=== PATIENT | female | born 1995 | race Two or more races ===

== ENCOUNTER 2016-02-21 11:30 | Emergency (ER) | payer MEDICAID ==
[~2016-02-21] VITALS: Ht 154.9 cm; Wt 115.7 kg
[2016-02-21 12:08] LABS: Basophils # (auto) 0 uL; Basophils % (auto) 0.4 % (0.0-2.0); Eosinophils # (auto) 0.1 uL; Eosinophils % (auto) 1.1 % (0.0-7.0); Hemoglobin 14.3 g/dL (12.2-16.2); Lymphocytes # (auto) 2.6 uL; Lymphocytes % (auto) 23.4 % (10.0-50.0); Mean Corpuscular Hemoglobin 27.7 pg (28.0-32.0); Mean Corpuscular Hgb Conc. 32.5 g/dL (32.0-36.0); Mean Corpuscular Volume 85.1 fL (80.0-100.0); Mean Platelet Volume 7.8 fL (7.4-10.4); Monocytes # (auto) 0.8 uL; Monocytes % (auto) 7.3 % (0.0-12.0); Neutrophils # (auto) 7.6 uL; Neutrophils % (auto) 67.8 % (37.0-80.0); Platelet Count (auto) 425 10^3/uL (140-450); Red Cell Distribution Width 13.1 % (11.6-16.0); White Blood Cell 11.2 10^3/uL (4.4-10.8)
[2016-02-21 12:26] LABS: Albumin 3.3 g/dL (3.4-5.0); Alkaline Phosphatase 115 U/L (45-117); Anion Gap 7 (5-15); Aspartate Aminotransferase < 3 U/L (15-37); BUN/Creatinine Ratio 26.8; Bilirubin, Total 0.3 mg/dL (0.2-1.0); Blood Urea Nitrogen 15 mg/dL (7-18); Calcium 8.9 mg/dL (8.5-10.1); Carbon Dioxide 29 mmol/L (21-32); Chloride 105 mmol/L (98-107); GFR African American 177 mL/min; GFR Non-African American 147 mL/min; Glucose 103 mg/dL (74-106); Potassium 4.3 mmol/L (3.5-5.1); Sodium 141 mmol/L (136-145)
[2016-02-21 14:14] LABS: Urine RBC None Seen /hpf (0 - 4)
[2016-02-21] MEDS ORDERED: PANTOPRAZOLE SODIUM 40 MG/10 ML VIAL IV STA (14:29)
[2016-02-21] MEDS ORDERED: SODIUM CHLORIDE 0.9% 500 ML IVB ONE (14:29)
[2016-02-21] MEDS ORDERED: ONDANSETRON HCL 4 MG/2 ML VIAL IV ONE (14:30)
[2016-02-21] MEDS ORDERED: MORPHINE SULFATE 4 MG/ML SYRG IV ONE (14:30)
[2016-02-21 14:32] LABS: Urine Bilirubin Negative (Negative); Urine Blood Negative /uL (Negative); Urine Color Yellow (Yellow); Urine Glucose Normal (Normal); Urine Ketone Negative (Negative); Urine Nitrite Negative (Negative); Urine Squamous Epithelial Cell MANY /hpf (<5); Urine Urobilinogen Normal (Negative); Urine WBC Clumps PRESENT /hpf (None Seen)
[2016-02-21 14:54] LABS: Amylase 34 U/L (25-115)
[2016-02-21] MEDS ORDERED: LEVOFLOXACIN 500MG 100 ML IV ONE (15:15)
[2016-02-21 15:55] VITALS: BP 117/62
== END 2016-02-21 17:05 | disposition home or self-care (01) ==
LOC: ER 11:31
DX: K29.70 Gastritis, unspecified, without bleeding (principal); N39.0 Urinary tract infection, site not specified; R11.2 Nausea with vomiting, unspecified; Z88.1 Allergy status to other antibiotic agents
CPT/HCPCS: 36415; 76705; 80053; 81001; 81025; 82150; 83690; 85025; 96365; 96366; 96375; 99285; C9113; J1956; J2270; J2405

== ENCOUNTER 2021-09-16 00:10 | Emergency (ER) | payer MEDICAID ==
[~2021-09-16] VITALS: Ht 157.5 cm; Wt 113.6 kg
[2021-09-16 00:52] LABS: Basophils # (auto) 0.1 10 ^3/uL (0-0.2); Basophils % (auto) 0.6 % (0.0-2.0); Eosinophils # (auto) 0.3 10 ^3/uL (0-0.8); Hemoglobin 12.3 g/dL (12.2-16.2); Red Blood Cells 4.66 10^6/uL (4.0-5.20)
[2021-09-16 00:53] LABS: Eosinophils % (auto) 2.5 % (0.0-7.0); Lymphocytes # (auto) 3.8 10 ^3/uL (0.4-5.4); Lymphocytes % (auto) 31.8 % (10.0-50.0); Mean Corpuscular Hemoglobin 26.4 pg (28.0-32.0); Mean Corpuscular Hgb Conc. 32.4 g/dL (32.0-36.0); Mean Corpuscular Volume 81.6 fL (80.0-100.0); Monocytes # (auto) 0.8 10 ^3/uL (0-1.3); Monocytes % (auto) 6.8 % (0.0-12.0); Neutrophils # (auto) 6.9 10 ^3/uL (1.6-8.6); Neutrophils % (auto) 58.3 % (37.0-80.0); Red Cell Distribution Width 15.1 % (11.8-14.3); White Blood Cell 11.9 10^3/uL (4.4-10.8)
[2021-09-16 01:08] LABS: Albumin 3.1 g/dL (3.4-5.0); BUN/Creatinine Ratio 22.6; Calcium 8.8 mg/dL (8.5-10.1)
[2021-09-16 01:09] LABS: Bilirubin, Total 0.2 mg/dL (0.2-1.0); Total Protein 7.9 g/dL (6.4-8.2)
[2021-09-16 01:15] LABS: Urine Bacteria FEW /hpf (None Seen); Urine Blood Negative /uL (Negative); Urine Specific Gravity 1.022 (1.001-1.035); Urine WBC 59 /hpf (0 - 5)
[2021-09-16] MEDS ORDERED: ONDANSETRON ODT 4 MG TAB PO ONE (02:00)
[2021-09-16] MEDS ORDERED: ALUM & MAG HYDROX-SIMETH LIQ(MAALOX) 30 ML PO ONE (02:00)
[2021-09-16] MEDS ORDERED: FAMOTIDINE 20 MG TAB PO ONE (02:00)
[2021-09-16] MEDS ORDERED: LIDOCAINE VISCOUS 2% 15ML UD PO ONE (02:00)
[2021-09-16] MEDS ORDERED: CEPH-322 PO (02:16)
[2021-09-16] MEDS ORDERED: OMEP-434 PO (02:16)
[2021-09-16 02:28] VITALS: BP 136/84
== END 2021-09-16 02:35 | disposition home or self-care (01) ==
LOC: ER 00:10
DX: K21.9 Gastro-esophageal reflux disease without esophagitis (principal); N39.0 Urinary tract infection, site not specified; Z88.1 Allergy status to other antibiotic agents
CPT/HCPCS: 36415; 80053; 81001; 81025; 85025; 99284; Q0162